=== PATIENT | male | born 1960 | race Caucasian/White ===

== ENCOUNTER 2020-08-08 12:37 | Emergency (ER) | payer MEDICARE, SELFPAY ==
[2020-08-08] VITALS (9 sets, daily range): BP systolic 106–173; BP diastolic 68–85; PULSE 57–78; RESP 12–18; TEMP 36.6; O2SAT 92–100
--- NOTE | ~2020-08-08 | XR_ITS ---
EXAMINATION: XR chest 2V DATE: 08/08/2020 13:10 INDICATION: Chest pain and chest pressure TECHNIQUE: PA and lateral views of the chest are obtained. COMPARISON: None available FINDINGS: There are patchy bilateral opacities, worst in the mid and lower lung zones. Cardiomegaly i s noted. There is no pleural effusion or pneumothorax. There are bridging osteophytes at multiple lev els in the spine, consistent with diffuse idiopathic skeletal hyperostosis (DISH). IMPRESSION: 1. Patchy bilateral opacities, consistent with atelectasis and/or pneumonia and/or pulmonary edema. Reviewed, dictated and finalized at location A. IMPRESSION: 1. Patchy bilateral opacities, consistent with atelectasis and/or pneumonia and /or pulmonary edema.
--- NOTE | 2020-08-08 12:49 | ECG_ITS ---
Measurements Intervals [place] Rate: 64 P: 57 MO: 177 QRS: 65 QRSD: 113 T: 30 QT: 405 QTc: 418 Interpretive Statements SINUS RHYTHM INCOMPLETE RIGHT BUNDLE BRANCH BLOCK BORDERLINE ST-T WAVE ABNORMALITY- ANTERIOR LEADS BASELINE ARTIFACT- I, II, III, AVR, AVF, V1, V3-V6 BORDERLINE ECG Electronically Signed On 08-08-2020 15:59:01 CDT by Howard Fulton D.O.
--- NOTE | 2020-08-08 12:54 | ED.CHESTPAIN ---
HPI - Chest Pain General Chief Complaint: Chest Pain Stated Complaint: chest tightness/arm shaking Time Seen by Provider: 08/08/20 12:46 Source: patient Mode of arrival: ambulatory Limitations: no limitations History of Present Illness HPI narrative: Patient is a 60 year old male who presents complaining of chest tightness and shortness of breath earlier today. He reports symptoms have resolved at this time. He reports pain in left side of chest. He reports pain is reproducable and increases with movement of left arm. He reports a history of interstitial lung disease. He reports appointment with pulmonology on 08/21/2020. He denies any shortness of breath or chest pain at this time. MD complaint: chest heaviness Related Data Home Medications Medication Instructions Recorded Confirmed albuterol sulfate INHALATION 08/08/20 08/08/20 levothyroxine [Euthyrox] 08/08/20 metformin mg 08/08/20 urea applic TOPICAL 08/08/20 Review of Systems Review of Systems: Narrative: CONSTITUTIONAL: Denies fever, chills, or sweats. EYES: Denies visual changes, redness, or discharge. ENT: Denies rhinorrhea, congestion, sore throat, or otalgia. CARDIOVASCULAR: Reports chest pain, denies palpitations, or edema. RESPIRATORY: Denies cough, reports intermittent dyspnea. GASTROINTESTINAL: Denies abdominal pain, nausea, vomiting, or diarrhea. GENITOURINARY: Denies dysuria or hematuria. SKIN: Denies rash or itching. MUSCULOSKELETAL: Denies back pain, joint pain, or myalgia. NEUROLOGIC: Denies headache, numbness, dizziness, or weakness. PSYCHIATRIC: Denies anxiety or depression. [facility] Past Medical History Medical History Depression Diabetes Elevated cholesterol Hypothyroidism Interstitial lung disease Surgical History Surgical History (Updated 08/08/20 @ 13:51 by RADHA Zavala) H/O hernia repair Family History Family History Other Heart disease Social History Social History (Updated 08/08/20 @ 13:52 by RADHA Zavala) Smoking status: Former smoker Tobacco type: cigarettes Alcohol intake: former Substance use: former Substance use type: crack/cocaine Last use: 1993 Exam Narrative: Exam Narrative: GENERAL: Well-appearing, well-nourished, and in no acute distress. HEAD: Normocephalic, atraumatic. EYES: EOMI. No redness or drainage. Conjunctiva are normal. ENT: Mucous membranes pink and moist. Nares clear. No rhinorrhea. Throat normal. Uvula midline. CHEST: No respiratory distress. Clear to auscultation. HEART: Regular rate and rhythm. No murmur appreciated. Normal peripheral pulses. GI: Soft, nontender without rebound, or guarding. No distention. Bowel sounds normal in all quadrants. MUSCULOSKELETAL: No bony tenderness. EXTREMITIES: Normal range of motion. No edema. SKIN: Warm, dry, no rash. NEURO: No focal deficits. Alert and oriented x3. Gait steady. PSYCH: Normal affect. No signs of depression or anxiety. Course Reevaluation(s) Reevaluation #1: Patient denies chest pain or shortness of breath at this time, he reports pain has been resolved since arrival. He reports feeling well. Patient given multiple resources and referrals. Patient to follow up with PCP as directed. Date: 08/08/20 Time: 17:01 Vital Signs Vital signs: Vital Signs Temperature 36.6 C 08/08/20 12:41 Pulse Rate 68 08/08/20 12:41 Respiratory Rate 18 08/08/20 12:41 Blood Pressure 173/85 H 08/08/20 12:41 Pulse Oximetry 96 08/08/20 12:41 Temperature 36.6 C 08/08/20 12:41 Pulse Rate 78 08/08/20 17:11 Respiratory Rate 16 08/08/20 17:11 Blood Pressure 118/75 08/08/20 17:11 Pulse Oximetry 100 08/08/20 17:11 Reviewed MDM - Chest Pain MDM Narrative Medical decision making narrative: Patient's labs were nonremarkable, Troponin is negatvie x 2. Patient requesting discharge at t
[2020-08-08 13:03] LABS: Basophils Absolute Auto 0.1 K/mm3 (0.0-0.1); Basophils Percent Auto 0.6 % (0.2-1.2); Eosinophils Absolute Auto 0.1 K/mm3 (0-0.3); Eosinophils Percent Auto 1.4 % (0-4.4); Hematocrit 46.7 % (42.0-52.0); Hemoglobin 15.9 g/dL (14.0-18.0); Immature Granulocyte Absolute 0.04 K/mm3 (0.00-0.031); Immature Granulocyte Percent A 0.4 % (0-0.5); Lymphocytes Percent Auto 20.9 % (18.3-44.2); Mean Corpuscular Hemoglobin 29.4 pg (26-34); Mean Corpuscular Volume 86.3 fl (80-100); Mean Platelet Volume 9.4 fl (7.4-10.4); Monocytes Absolute Auto 0.6 K/mm3 (0.1-0.6); Monocytes Percent Auto 6.9 % (2.6-8.5); Neutrophils Absolute Auto 6.3 K/mm3 (1.3-6.7); Neutrophils Percent Auto 69.8 % (45.5-73.1); Platelet Count Result 168 k/mm3 (150-375); Red Blood Count 5.41 M/mm3 (4.6-6.20); Red Cell Distribution Width 12.9 % (11.5-14.5); White Blood Count 9.1 K/mm3 (4.5-10.0)
[2020-08-08 13:14] LABS: Anion Gap 6 mmol/L (8-16); Blood Urea Nitrogen 15 mg/dL (9-20); Calcium 9.5 mg/dL (8.4-10.2); Carbon Dioxide 27 mmol/L (22-30); Chloride 105 mmol/L (98-107); Estimated CRCL calculation 88 ml/min; Estimated Glomerular Filt Rate > 60; Glucose 120 mg/dL (75-110); Potassium 4.3 mmol/L (3.4-5.0); Sodium 138 mmol/L (137-145)
[2020-08-08 13:15] LABS: INR 0.9
[2020-08-08 13:16] LABS: Partial Thromboplastin Time 29.4 SECONDS (22.3-36.8)
[2020-08-08 13:25] LABS: Troponin I < 0.012 ng/mL (0.000-0.034)
[2020-08-08 16:14] LABS: Troponin I < 0.012 ng/mL (0.000-0.034)
== END 2020-08-08 17:12 | disposition home or self-care (01) ==
PROVIDERS: Emergency Medicine; Emergency Provider Nurse Practitioner; PCP Family Medicine
DX: R07.89 Other chest pain (principal); F32.9 Major depressive disorder, single episode, unspecified; E11.9 Type 2 diabetes mellitus without complications; E78.5 Hyperlipidemia, unspecified; E03.9 Hypothyroidism, unspecified; Z79.84 Long term (current) use of oral hypoglycemic drugs
CPT/HCPCS: 36415; 71046; 80048; 84484; 85025; 85610; 85730; 93005; 99284

== ENCOUNTER 2021-12-22 17:40 | Inpatient (IN) | payer MEDICARE, SELFPAY ==
--- NOTE | ~2021-12-22 | XR_ITS ---
EXAMINATION: XR abdomen NG/feed tube insert DATE: 12/25/2021 03:05 INDICATION: Nasogastric tube placement. TECHNIQUE: An upright view of the abdomen was obtained. COMPARISON: Chest CT 12/22/2021 FINDINGS: The lower abdomen is excluded. There are dilated loops of small bowel. The nasogastric tube tip is in the stomach. IMPRESSION: 1. Nasogastric tube tip in the stomach. 2. Dilated small bowel, most likely adynamic ileus. Reviewed, dictated and finalized at location A.
--- NOTE | ~2021-12-22 | CT_ITS ---
EXAMINATION: CTA chest PE protocol DATE: 12/22/2021 23:06 INDICATION: Hypoxia. TECHNIQUE: Computed tomography angiography (CTA) of the chest was performed with 100 mL Omnipaque-350 intravenous contrast timed to evaluate the pulmonary arteries. Coronal maximum intensity projection 3D-reconstructions were created by the technologist. Automated exposure control and iterative reconst ruction technique were employed. The dose-length product was 520.47 mGy-cm. COMPARISON: Chest 2 views 08/08/2020 FINDINGS: There is mild emphysema. There is widespread septal thickening in the lungs with a peripher al predominance. There is mild bronchiectasis in the inferior lungs. There are multiple areas of marcellus pheral honeycombing. There are groundglass opacities in the left lower lobe and posterior aspect of l eft upper lobe. Calcified pulmonary nodules and calcified hilar lymph nodes are consistent with old g ranulomatous disease. No pleural effusion. The heart size is normal. No pericardial effusion. The keith tral pulmonary is enlarged, consistent with pulmonary arterial hypertension. There is contrast mixing artifact in the pulmonary arteries in right lung lower lobe due to the early phase of contrast opaci fication. There is no pulmonary embolus. Calcifications in the spleen are consistent with old granulo matous disease. There is mediastinal lymphadenopathy. For example, a right paratracheal node measures 2.4 x 2.1 cm. There are bridging endplate osteophytes at multiple levels in the spine, consistent wi th diffuse idiopathic skeletal hyperostosis (DISH). IMPRESSION: 1. No pulmonary embolus. 2. Diffuse lung disease, likely a combination of mild emphysema and severe chronic interstitial lung disease in a pattern of usual interstitial pneumonia (UIP). Groundglass opacities in left lung sugges t superimposed pulmonary edema or pneumonia. 3. Mediastinal lymphadenopathy, likely reactive. Reviewed, dictated and finalized at location A. IMPRESSION: 1. No pulmonary embolus. 2. 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 Groundglass opacities in left lung suggest superimposed pulmonary edema or p neumonia. 3. Mediastinal lymphadenopathy, likely reactive.
--- NOTE | ~2021-12-22 | XR_ITS ---
EXAMINATION: XR chest 1V portable DATE: 12/25/2021 04:26 INDICATION: Intubation. TECHNIQUE: A single frontal view of the chest was obtained. COMPARISON: Chest single view at 2:54 AM FINDINGS: The lung volumes are small. There are airspace and interstitial opacities throughout the ramsey ngs bilaterally. No pleural effusion or pneumothorax. The heart size is normal. The endotracheal tube tip is 14 mm above the renetta. The nasogastric tube tip is beyond the inferior margin of the radiogr aph, but at least to the stomach. IMPRESSION: 1. Diffuse lung disease with worsening at left lung base, consistent with chronic interstitial lung d isease with superimposed pulmonary edema versus pneumonia. Reviewed, dictated and finalized at location A. IMPRESSION: 1. Diffuse lung disease with worsening at left lung base, consistent with chron ic interstitial lung disease with superimposed pulmonary edema versus pneumonia .
--- NOTE | ~2021-12-22 | XR_ITS ---
EXAMINATION: XR chest ET placement DATE: 12/25/2021 03:04 INDICATION: Endotracheal tube repositioning. TECHNIQUE: A single frontal view of the chest was obtained. COMPARISON: Chest single view 2:50 AM FINDINGS: The lung volumes are small. There are airspace and interstitial opacities throughout the ramsey ngs bilaterally. No pleural effusion or pneumothorax. The heart size is normal. The endotracheal tube tip is 2.6 cm above the renetta. The nasogastric tube tip is in the stomach. A curvilinear density ov erlies left lateral chest wall. IMPRESSION: 1. Stable diffuse lung disease, consistent with chronic interstitial lung disease with superimposed p ulmonary edema versus pneumonia. Reviewed, dictated and finalized at location A. IMPRESSION: 1. Stable diffuse lung disease, consistent with chronic interstitial lung disea se with superimposed pulmonary edema versus pneumonia.
--- NOTE | ~2021-12-22 | XR_ITS ---
EXAMINATION: XR chest 1V portable Exam Date/Time: 12/24/2021 22:48 CDT HISTORY: increased need for o2 Comparison: 12/24/2021 at 9:15 AM. RESULT: Lines, tubes, and devices: None. Lungs and pleura: Increasing bibasilar subsegmental opacities and left lung groundglass opacities, o verlying otherwise stable diffuse coarse interstitial and airspace opacities. Bilateral angle bluntin g. Cardiomediastinal silhouette: Stable. Other: No acute osseous or upper abdominal finding. IMPRESSION: Pulmonary opacities likely represent increasing pulmonary edema, increasing bibasilar atelectasis/con solidation, and new small bilateral effusions, overlying chronic interstitial change. Reviewed, dictated and finalized at location K. IMPRESSION: Pulmonary opacities likely represent increasing pulmonary edema, increasing bib asilar atelectasis/consolidation, and new small bilateral effusions, overlying chronic interstitial change.
--- NOTE | ~2021-12-22 | XR_ITS ---
EXAMINATION: XR chest ET placement DATE: 12/25/2021 03:04 INDICATION: Intubation. TECHNIQUE: A single frontal view of the chest was obtained. COMPARISON: Chest single view 12/24/2021 FINDINGS: The lung volumes are small. There are airspace and interstitial opacities throughout the ramsey ngs bilaterally. No pleural effusion or pneumothorax. The heart size is normal. The endotracheal tube tip is 2.3 cm above the renetta. The nasogastric tube tip is beyond the inferior margin of the radiog raph, but at least to the stomach. A curvilinear density overlies the left lateral chest wall soft ti ssues. IMPRESSION: 1. Stable diffuse lung disease, consistent with chronic interstitial lung disease with superimposed p ulmonary edema versus pneumonia. Reviewed, dictated and finalized at location A. IMPRESSION: 1. Stable diffuse lung disease, consistent with chronic interstitial lung disea se with superimposed pulmonary edema versus pneumonia.
--- NOTE | ~2021-12-22 | XR_ITS ---
XR chest 1V portable 12/24/2021 09:23 Indication: Interstitial lung disease. Shortness of breath and cough. Procedure: AP portable chest Comparison: 08/08/2020 Findings: There is diffuse bilateral airspace disease which may represent edema or pneumonia. No sign ificant effusion. No pneumothorax. Enlarged cardiomediastinal silhouette. No acute osseous abnormalit y. Impression: 1: Diffuse bilateral airspace disease may represent edema or pneumonia. Reviewed, dictated and finalized at location A. Impression: 1: Diffuse bilateral airspace disease may represent edema or pneumonia.
--- NOTE | 2021-12-22 17:57 | ADMGEN ---
This patient, Dean Duffy, was admitted to IMU Room 210-01 at 1750. Patient/family oriented to hospital policies and general routines including ID bracelet, bed and alarms, visiting hours, pain management, procedures, bathroom and other care routines, personal items, smoking policy, room service/diet, and visiting hours. Information on how to activate the Rapid Response Team has been discussed. Patient/Family are encouraged to report perceived risks to care and to ask questions if they do not understand what they are told or what they should do.
[2021-12-22 18:00] VITALS: PULSE 68
[2021-12-22 18:02] LABS: Glucose Point of Care 128 mg/dl (65-105)
[2021-12-22 18:09] VITALS: BP 130/72; PULSE 69; RESP 22; TEMP 36.6; O2SAT 74; BMI 31.2
--- NOTE | 2021-12-22 18:29 | ECG_ITS ---
Measurements Intervals [place] Rate: 65 P: 131 UT: 178 QRS: 121 QRSD: 117 T: 235 QT: 449 QTc: 468 Interpretive Statements SINUS RHYTHM ARM LEADS REVERSED ST-T WAVE ABNORMALITY IN ANTEROLAT/INF LEADS- CONSIDER ISCHEMIA ABNORMAL ECG COMPARED TO ECG 08/08/2020 12:47:03 ST-T WAVE ABNORMALITY IN ANTEROLAT/INF LEADS- CONSIDER ISCHEMIA NOW PRESENT Electronically Signed On 12-23-2021 7:56:15 CDT by Howard Fulton D.O.
[2021-12-22 19:01] LABS: Basophils Percent Auto 0.1 % (0.2-1.2); Eosinophils Percent Auto 0.1 % (0-4.4); Hematocrit 43.7 % (42.0-52.0); Hemoglobin 14.4 g/dL (14.0-18.0); Immature Granulocyte Absolute 0.09 K/mm3 (0.00-0.031); Immature Granulocyte Percent A 0.7 % (0-0.5); Lymphocytes Absolute Auto 1.77 K/mm3 (0.9-3.2); Lymphocytes Percent Auto 13.2 % (18.3-44.2); Mean Corpuscular Hemoglobin 29.9 pg (26-34); Mean Corpuscular Volume 90.9 fl (80-100); Mean Platelet Volume 9.7 fl (7.4-10.4); Monocytes Absolute Auto 1.2 K/mm3 (0.1-0.6); Monocytes Percent Auto 9.2 % (2.6-8.5); Neutrophils Absolute Auto 10.3 K/mm3 (1.3-6.7); Neutrophils Percent Auto 76.7 % (45.5-73.1); Platelet Count Result 206 k/mm3 (150-375); Red Blood Count 4.81 M/mm3 (4.6-6.20); Red Cell Distribution Width 13.8 % (11.5-14.5); White Blood Count 13.4 K/mm3 (4.5-10.0)
[2021-12-22 19:09] LABS: Hemoglobin A1C 6.2 % (<5.7)
[2021-12-22 19:11] LABS: INR 1.1; Partial Thromboplastin Time 42.4 SECONDS (22.3-36.8); Prothrombin Time 14.2 Seconds (11.1-14.7)
[2021-12-22 19:13] LABS: Alanine Aminotransferase 40 U/L (6-50); Alkaline Phosphatase 60 U/L (38-126); Anion Gap 11 mmol/L (8-16); Aspartate Amino Transferase 29 U/L (17-59); Bilirubin,Total 0.4 mg/dL (0.2-1.3); Blood Urea Nitrogen 26 mg/dL (9-20); Calcium 9.3 mg/dL (8.4-10.2); Carbon Dioxide 24 mmol/L (22-30); Chloride 105 mmol/L (98-107); Estimated CRCL calculation 83 ml/min; Estimated Glomerular Filt Rate > 60; Glucose 134 mg/dL (65-110); Magnesium 2.1 mg/dL (1.6-2.3); Sodium 140 mmol/L (137-145)
[2021-12-22 19:25] LABS: Troponin I 0.114 ng/mL (0.000-0.034)
--- NOTE | 2021-12-22 19:30 | PM.IMHP ---
H&P: HPI History of Present Illness Date/Time: 12/22/21 19:30 Chief Complaint: NSTEMI. Narrative: This is a very pleasant 61-year-old male with chronic respiratory failure on oxygen, chronic interstitial lung disease, hypertension, hyperlipidemia, diabetes, and GERD who is being directly admitted to the IMU from the emergency department at [facility] in [place] for further evaluation and Cardiology consultation after he was found to have evidence suggestive of a non ST elevation myocardial infarction. He is on 3 liters nasal cannula at rest and 4 liters with exertion and his SpO2 is usually around 90%. Over the last week or so he has been feeling increasingly short of breath and he has been wearing 4 to 5 liters in order to maintain his SpO2 above 88%. He has had a cough as well though goes on to say that it has been pretty chronic since he had COVID in September 2021. It has not necessarily been any more productive than usual however the cough has been harsh and he has had frequent coughing jags to the point where he has had near syncopal episodes. With further questioning he also admits that he feels as though his cough is worse when eating and drinking which he initially thought was perhaps due to indigestion and he has been taking Tums. He has not however had any symptoms to suggest GERD or indigestion and he also denies chest discomfort, pleuritic pain, and palpitations. Last evening he presented to the emergency department at [facility] and at that time his labs were pretty much unremarkable aside from elevated high sensitivity troponin and BNP which were 1.93 and 4664 respectively. He was started on a heparin drip and transfer was initiated to [place]. At the time my evaluation he is resting comfortably and his main complaint is that of ongoing cough which seems to be worse with deep inspiration. He is not having any chest pain to speak of. He has no known history of coronary artery disease. Stress test done about 7 years ago was unremarkable. He has no personal or family history of venous thromboembolism he has not noticed any lower extremity edema or calf pain. He cannot recall a time where he may have accidentally aspirated into his airway. He has not had any loss of consciousness. No sinus congestion or sore throat. He denies sick contacts. Appetite has been fine. No nausea, vomiting, or diarrhea. Review of Systems Review of Systems: Twelve systems were reviewed. Glucose usually runs right about 100. His glucose this morning was brought 130 but he did receive a dose of Decadron last evening. He has never been officially diagnosed with emphysema or COPD to his knowledge. He is followed by a insulation sprayer at [facility] and he is supposed to have an upcoming CT of the chest to reassess his interstitial lung disease. Except as documented, all other systems were reviewed and are negative. ON LICENSE OF [facility] Past Medical History Medical History (Updated 12/22/21 @ 23:53 by Helga Berry PA-C) Basal cell carcinoma of face Chronic respiratory failure with hypoxia, on home oxygen therapy Depression Dyslipidemia Hypothyroidism Interstitial lung disease Obstructive sleep apnea Type 2 diabetes mellitus Surgical History Surgical History (Updated 12/22/21 @ 20:01 by Helga Berry PA-C) History of basal cell carcinoma excision History of hernia repair Family History Family History Father Hx of CABG Heart disease Mother Ovarian cancer Sibling CAD (coronary artery disease) Breast cancer Social History Social History (Updated 12/22/21 @ 20:03 by Helga Berry PA-C) Social History: Surrogate medical decision maker: Roxanne Duffy, spouse Code status: full code. Smoking packs per day: 2 Smoking cigarettes per day: 40.0 Years smoked: 8 Smoking pack-years: 16.00 Smoking status: Former smoker Tobacco type: cigarettes Alcohol in
--- NOTE | 2021-12-22 19:53 | ECG_ITS ---
Measurements Intervals [place] Rate: 59 P: 40 MT: 172 QRS: 59 QRSD: 114 T: -68 QT: 456 QTc: 455 Interpretive Statements SINUS BRADYCARDIA INTRAVENTRICULAR CONDUCTION DELAY ST-T WAVE ABNORMALITY IN ANT/INF LEADS- CONSIDER ISCHEMIA ABNORMAL ECG COMPARED TO ECG 12/22/2021 18:46:20 HR HAS DECREASED Electronically Signed On 12-23-2021 7:57:01 CDT by Howard Fulton D.O.
[2021-12-22 19:59] LABS: Glucose Point of Care 133 mg/dl (65-105)
[2021-12-22 20:00] VITALS: BP 114/63; PULSE 67; PULSE 70; RESP 20; TEMP 36.4; O2SAT 95
[2021-12-22 21:57] LABS: Basophils Percent Auto 0.2 % (0.2-1.2); Eosinophils Percent Auto 0.1 % (0-4.4); Hematocrit 43.2 % (42.0-52.0); Hemoglobin 14.2 g/dL (14.0-18.0); Immature Granulocyte Absolute 0.06 K/mm3 (0.00-0.031); Immature Granulocyte Percent A 0.4 % (0-0.5); Mean Corpuscular HGB Conc 32.9 g/dl (32-36); Mean Corpuscular Hemoglobin 29.6 pg (26-34); Mean Corpuscular Volume 90.2 fl (80-100); Mean Platelet Volume 9.8 fl (7.4-10.4); Monocytes Absolute Auto 1.3 K/mm3 (0.1-0.6); Monocytes Percent Auto 8.3 % (2.6-8.5); Neutrophils Absolute Auto 11.6 K/mm3 (1.3-6.7); Platelet Count Result 197 k/mm3 (150-375); Red Blood Count 4.79 M/mm3 (4.6-6.20); Red Cell Distribution Width 13.6 % (11.5-14.5); White Blood Count 15.1 K/mm3 (4.5-10.0)
[2021-12-22 22:00] VITALS: PULSE 61; PULSE 63; RESP 25; O2SAT 95
[2021-12-22 22:08] LABS: INR 1.2; Prothrombin Time 14.5 Seconds (11.1-14.7)
[2021-12-22 22:09] LABS: Partial Thromboplastin Time 48.1 SECONDS (22.3-36.8)
[2021-12-22 22:23] LABS: Troponin I 0.124 ng/mL (0.000-0.034)
[2021-12-22] MEDS: ARIPiprazole 10 MG TABLET 30 MG PO (23:10)
[2021-12-22] MEDS: PANTOPRAZOLE 40 MG TABLET PO (23:13)
[2021-12-22] MEDS: ESCITALOPRAM OXALATE 10 MG TABLET PO (23:13)
[2021-12-22] MEDS: ATORVASTATIN 20 MG TABLET PO (23:13)
[2021-12-22] MEDS: buPROPion HCL SR (12HR) 100 MG TABCR 200 MG PO (23:13)
[2021-12-22] MEDS: HEPARIN SOD/D5W 100 UNITS/ML 25,000 UNITS/250 ML BAG 13 UNITS IV CONT (23:14)
[2021-12-22] MEDS: HEPARIN SODIUM 5,000 UNITS/ML VIAL 4000 UNITS IV PUSH (23:22)
[2021-12-22 23:36] VITALS: BP 122/62; PULSE 67; RESP 22; TEMP 36.6; O2SAT 92
[2021-12-22 23:48] VITALS: PULSE 67; RESP 22; O2SAT 92
[2021-12-23] VITALS (21 sets, daily range): BP systolic 100–121; BP diastolic 57–75; PULSE 54–80; RESP 16–24; TEMP 36.2–36.7; O2SAT 93–97
[2021-12-23 01:07] LABS: Troponin I 0.128 ng/mL (0.000-0.034)
[2021-12-23] MEDS: LEVOTHYROXINE SODIUM 50 MCG TABLET BY MOUTH (06:16)
[2021-12-23 06:37] LABS: Basophils Percent Auto 0.3 % (0.2-1.2); Eosinophils Absolute Auto 0.1 K/mm3 (0-0.3); Eosinophils Percent Auto 0.4 % (0-4.4); Hematocrit 43.6 % (42.0-52.0); Hemoglobin 14.1 g/dL (14.0-18.0); Immature Granulocyte Absolute 0.08 K/mm3 (0.00-0.031); Immature Granulocyte Percent A 0.6 % (0-0.5); Lymphocytes Absolute Auto 2.79 K/mm3 (0.9-3.2); Mean Corpuscular HGB Conc 32.3 g/dl (32-36); Mean Corpuscular Hemoglobin 29.4 pg (26-34); Mean Corpuscular Volume 90.8 fl (80-100); Mean Platelet Volume 10.2 fl (7.4-10.4); Monocytes Absolute Auto 1.1 K/mm3 (0.1-0.6); Monocytes Percent Auto 7.6 % (2.6-8.5); Neutrophils Absolute Auto 9.9 K/mm3 (1.3-6.7); Neutrophils Percent Auto 71.1 % (45.5-73.1); Platelet Count Result 204 k/mm3 (150-375); Red Cell Distribution Width 13.7 % (11.5-14.5); White Blood Count 13.9 K/mm3 (4.5-10.0)
[2021-12-23 06:44] LABS: Anion Gap 10 mmol/L (8-16); Blood Urea Nitrogen 24 mg/dL (9-20); Calcium 8.7 mg/dL (8.4-10.2); Carbon Dioxide 26 mmol/L (22-30); Chloride 103 mmol/L (98-107); Estimated CRCL calculation 83 ml/min; Estimated Glomerular Filt Rate > 60; Glucose 131 mg/dL (65-110); Potassium 3.7 mmol/L (3.4-5.0); Sodium 139 mmol/L (137-145)
[2021-12-23 06:47] LABS: Partial Thromboplastin Time 118.5 SECONDS (22.3-36.8)
--- NOTE | 2021-12-23 07:08 | PM.CNCAR ---
Assessment and Plan Assessment and plan (1) Interstitial lung disease: Code(s): J84.9 - Interstitial pulmonary disease, unspecified Status: Acute (2) Chronic respiratory failure with hypoxia, on home oxygen therapy: Code(s): J96.11 - Chronic respiratory failure with hypoxia; Z99.81 - Dependence on supplemental oxygen Status: Acute Plan This is a 61-year-old man with chronic lung disease who has been coughing a lot more than usual for about 3 months since he had coronavirus in September. I do not get any history from him that would make me suspicious or concerned about an acute coronary syndrome. His electrocardiogram shows a very mild nonspecific T-wave abnormality but nothing of great. Particular concern regarding acute coronary syndrome. His troponin levels are out of normal range but flat and not in a pattern that is suggestive of ACS. I am going to recommend stopping his heparin and I will arrange for a Lexiscan nuclear stress test to be done tomorrow. Tayo Starr MD [facility] History of Present Illness History of Present Illness Consult date/time: 12/23/21 07:08 Reason For Visit: Elevated Troponins/SOB/NSTEMI Narrative: This is a 61-year-old man who I am seeing at the request of the hospitalist. He was transferred here yesterday from the emergency room and [place] for cardiac evaluation because of concern regarding acute coronary syndrome. He is not known to have heart disease of any kind and he is not reporting any sort of chest pain. The patient has been complaining of worsening of a chronic cough for the last 3 months. He states that he has chronic interstitial lung disease and sees a intermodal truck driver at [facility] for management of his lung disease. States this diagnosis goes back to about 2017 and he is on home oxygen. In September of this year he developed coronavirus and following that illness he noticed that his coughing clearly worsened over the course of the summer he has been having significant coughing spells sometimes nonproductive and sometimes productive of some thick sputum. He is not really reporting any fevers or chills. He is not having any chest pain. Because of this worsening coughing he went to the emergency room and [place] and his evaluation included electrocardiograms and troponin levels. Because of his findings he was felt to be having an acute coronary syndrome he was placed on a heparin infusion and transferred over here. His 12 lead ECG in my opinion demonstrates sinus rhythm with some nonspecific T-wave abnormalities. There are no acute ischemic changes. His troponin levels are out of normal range but are of low level elevation that are flat at 0.1. Upon entering the room to see him this morning he is lying flat in bed with his oxygen in place and appears to be otherwise essentially comfortable. Review of Systems Constitutional: Constitutional: Reports no additional constitutional complaints Eyes: Eyes: Reports no additional eye complaints ENT: Reports system reviewed and no additional complaints, except as documented Cardiovascular: Cardiovascular: Reports no additional cardiovascular complaints Respiratory: Respiratory: Reports cough and Reports dyspnea on exertion Gastrointestinal: Gastrointestinal: Reports no additional gastrointestinal complaints Musculoskeletal: Musculoskeletal: Reports no additional musculoskeletal complaints Integumentary/Breasts: Skin/Breast: Reports system reviewed and no additional complaints, except as docu Neurologic: Reports system reviewed and no additional complaints, except as documented Endocrine: Endocrine: Reports no additional endocrine complaints Hematologic/Lymphatic: Hematologic/Lymphatic: Reports no additional hematologic/lymphatic complaints Allergic/Immunologic: Allergic/Immunologic: Reports no additional allergic/immunologic complaints [facility] Past Medical History Medical History (Updated 12/22/21 @ 23:53
[2021-12-23 07:59] LABS: Glucose Point of Care 126 mg/dl (65-105)
[2021-12-23] MEDS: BENZONATATE 100 MG CAPSULE 200 MG PO (09:09)
[2021-12-23] MEDS: ARIPiprazole 10 MG TABLET 30 MG PO (09:09)
[2021-12-23] MEDS: ASPIRIN 81 MG ENTERIC TABLET PO (09:10)
[2021-12-23] MEDS: METOPROLOL TARTRATE 12.5 MG TABLET PO ×2 (09:10→21:24)
[2021-12-23] MEDS: ATORVASTATIN 20 MG TABLET PO (09:10)
[2021-12-23] MEDS: buPROPion HCL SR (12HR) 100 MG TABCR 200 MG PO ×2 (09:11→18:11)
[2021-12-23] MEDS: ESCITALOPRAM OXALATE 10 MG TABLET PO (09:11)
[2021-12-23] MEDS: PANTOPRAZOLE 40 MG TABLET PO (09:11)
--- NOTE | 2021-12-23 09:11 | PM.IMPN ---
Progress Note: A&P Assessment and Plan (1) Non-ST elevation myocardial infarction (NSTEMI): Code(s): I21.4 - Non-ST elevation (NSTEMI) myocardial infarction Status: Acute Assessment and Plan: Patient denies chest pain. His symptoms mostly consist of respiratory concerns. Troponins are elevated but flat. EKG does show diffuse T-wave inversion concerning for ischemia. He was on a heparin drip but this has now been stopped. He remains on aspirin, Lipitor and metoprolol. Echo pending. Cardiology has been consulted with plans for Lexiscan stress test in the morning. Appreciate their input. (2) Chronic respiratory failure with hypoxia, on home oxygen therapy: Code(s): J96.11 - Chronic respiratory failure with hypoxia; Z99.81 - Dependence on supplemental oxygen Status: Acute Assessment and Plan: CTA of the chest shows diffuse lung disease likely a combination of emphysema, severe I LD (UIP) and ground-glass opacities in left lung suggestive edema or pneumonia. He also has reactive mediastinal adenopathy. Patient has had a chronic cough is worse since September. 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 His symptoms have worsened over the past 3-4 days to suggest change in his clinical condition possibly from pneumonia. There was a question of possible pulmonary edema. Has split S2 (gallop?) and elevated BNP but no pedal edema. Will check BCx and sputum Cx. Consider Lasix. Start levaquin. Add nebs and mucinex. Pulmonary consult. (3) Type 2 diabetes mellitus: Code(s): E11.9 - Type 2 diabetes mellitus without complications Status: Acute Assessment and Plan: A1c 6.2. The patient's blood glucose was reviewed on 12/23 Glucose remains well controlled. Continue AccuCheks covering with sliding scale. Hypoglycemia protocol available as needed. Continue to monitor (4) Obstructive sleep apnea: Code(s): G47.33 - Obstructive sleep apnea (adult) (pediatric) Status: Acute Assessment and Plan: Patient is compliant with CPAP at home. Continue CPAP here while hospitalized. (5) Hypothyroidism: Code(s): E03.9 - Hypothyroidism, unspecified Status: Acute Assessment and Plan: TSH is normal. Continue levothyroxine. (6) Interstitial lung disease: Code(s): J84.9 - Interstitial pulmonary disease, unspecified Status: Acute Assessment and Plan: As above. Plan DVT prophylaxis: Heparin drip stopped. Change to Lovenox prophylactic dose Code status: Full Subjective Date/time seen: 12/23/21 09:11 Interval history: 61yo male with chronic respiratory failure, ILD, DM and LAKSHMI transferred from outside hospital for possible NSTEMI. Patient has interstitial lung disease since 2017 and is on chronic oxygen 3 L at rest and 4 L with activity. His hypoxia worsened after he developed COVID in September of this year. He is now wearing 4-5 L mostly. He has also had a chronic cough and developed shortness of breath that is mostly associated with the cough. Cough has been worse over the past 3-4 days. The cough is occasionally productive of clear sputum. He denies any chest discomfort, arm pain, jaw pain or back pain. He denies any pedal edema or calf pain. No pleuritic chest pain. Exam Narrative: AF 97.8 110/67 60 24 96% 5L Gen - NARD sitting up in bed Chest -dry inspiratory crackles mid lower lung pierre bilaterally. Mildly tachypneic with conversation. CV - RRR S1/S2. Split S2 left sternal boarder. Telemetry showing no significant dysrhythmias Abd - Soft, NT/ND, Positive BS Ext - No pedal edema. Negative Homans. 2+ DP pulses bilaterally Psych - Nml mood and affect Skin - Warm and dry Objective Data Vital Signs Vital Signs: Vital Signs - 24 hr 12/22/21 18:09 12/22/21 18:00 12/22/21 20:00 Temperature 97.9 F 97.5 F L Pulse Rate 69 68 67 Respiratory Rate 22 H 20 Blood Pressure 130/72 114/63 Pulse Oximetry 74 L 95 Oxygen
[2021-12-23 11:18] LABS: Partial Thromboplastin Time 29.2 SECONDS (22.3-36.8)
[2021-12-23] MEDS: ENOXAPARIN 40 MG/0.4 ML SYRINGE SUB-Q (11:44)
[2021-12-23] MEDS: guaiFENesin 12 HR 600 MG TABCR PO ×2 (11:44→21:25)
[2021-12-23 12:06] LABS: Glucose Point of Care 199 mg/dl (65-105)
[2021-12-23] MEDS: ALBUTEROL SULFATE NEB 2.5 MG/3 ML INH INHALATION ×2 (13:54→20:07)
[2021-12-23] MEDS: IPRATROPIUM BR 0.02% INH SOLN 0.5 MG/2.5 ML VIAL INHALATION ×2 (13:54→20:07)
[2021-12-23] MEDS: polyethylene glycoL 3350 17 GM POWD.PACK PO (18:11)
[2021-12-23 18:12] LABS: Glucose Point of Care 153 mg/dl (65-105)
--- NOTE | 2021-12-23 19:01 | PM.CNPUL ---
Assessment and Plan Assessment and plan (1) Interstitial lung disease: Code(s): J84.9 - Interstitial pulmonary disease, unspecified Status: Acute Assessment and Plan: See above discussion. He has had this diagnosis since [id number], has not been on anti-fibrotic medications, He took steroids twice over the few weeks before this admission. He is followed by Dr Burkett in [facility]; will obtain records. He does not have an associated collagen vascular disease; he has worsened since COVID in September 2021. COVID can be associated with UIP type fibrosis. he has a combination of processes going on at this time; underlying ILD for the last 6 years, subacute COVID in September 2021, possible active infection with ground glass opacities in the left base. He is on Levaquin for coverage of normal community acquired pathogens, may require additional treatment. He may need IV steroids, however with active infection, I wanted to delay this if possible. He is on PPI for management of GERD which is frequent in patients with ILD. He may benefit from vibratory valve to help expectorate secretions. I ordered an SEBASTIÁN panel to screen for collagen vascular diseases; he has regular arthritis, no evidence of RA and no history of auto-immune illness. There is no family history of autoimmune illness. A paternal uncle had a lung related when he was close to 60, not sure if this could represent a family hx of ILD. (2) Obstructive sleep apnea: Code(s): G47.33 - Obstructive sleep apnea (adult) (pediatric) Status: Acute Assessment and Plan: Uses APAP at home with O2; sometimes he wakes with the mask on the floor; will offer APAP while he is here. He has not had a sleep study in years. He feels better using PAP compared to nightst hat he does not use it. (3) Chronic respiratory failure with hypoxia, on home oxygen therapy: Code(s): J96.11 - Chronic respiratory failure with hypoxia; Z99.81 - Dependence on supplemental oxygen Status: Acute Assessment and Plan: Adjust O2 to maintain O2 saturation 90% +; He will use APAP and O2 with sleep. IF he desaturates, he would benefit from AirVo instead of BiPAP. He does not have CO2 retention. He is getting bronchodilators; may help some, however he smoked 10 years at most 2 ppd, does not have a diagnosis of COPD. Plan Complicated situation. ILD plus COVID in September 2021 without full recovery. Old records. O2, sputum studies, out patient initiation of anti-fibrotic medications. He has not had any treatment for his ILD. His pattern on CT looks like UIP. He is on treatment for GERD with PPI once a day. History of Present Illness History of Present Illness Consult date: 12/23/21 Requesting physician: Bj Jones MD Chief complaint: ILD, post COVID Narrative: NEW: Dean Duffy is a 61 year old man admitted with increased shortness of breath and incessant coughing to the point of almost passing out. During the 3 weeks prior to this admission, he had increased symptoms, and was prescribed 2 rounds of short course steroids which sounded like a medrol dose pack and once he had azithromycin. He was initially treated at [facility] in [place], had low level troponins, no other evidence of an CO. Dr Starr saw him in consultation, did not think he had an CO or other significant cardiac disease. He was diagnosed with ILD in [id number] along with DM II and LAKSHMI. 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 . Otherwise, he does not hav
[2021-12-23 20:04] LABS: Glucose Point of Care 170 mg/dl (65-105)
[2021-12-24] VITALS (31 sets, daily range): BP systolic 106–140; BP diastolic 67–78; PULSE 59–96; RESP 16–35; TEMP 36.1–37.4; O2SAT 89–98
--- NOTE | 2021-12-24 | ECHO_ITS ---
Patient Info Name: Dean Duffy Age: 61 years : 1960 Gender: Male Ht: 68 in Wt: 205 lbs BSA: 2.14 m2 HR: 66 bpm BP: 106 / 78 mmHg Heart Rhythm: Sinus Rhythm Technical Quality: Fair Exam Date: 12/24/2021 8:53 AM Exam Location: [facility] Card Pulmonary Patient Status: Inpatient Admit Date: 12/23/2021 Staff Ordering Physician: Helga Berry PA-C Software Team Leader: Joycelyn Guerra RDCS Attending Provider: Alyce Rizo DO Referring Physician: Jamal AU; Exam Type: CA echo doppler color flow Study Info Indications - elevated troponin, htn, hld, dm Complete two-dimensional, color flow and Doppler transthoracic echocardiogram is performed. Summary 1. Complete two-dimensional, color flow and Doppler transthoracic echocardiogram is performed. 2. Left ventricular chamber dimension is normal. 3. Left ventricular systolic function is mildly reduced, estimated at 50-55%. 4. Right ventricular chamber dimension is moderately enlarged. 5. Right ventricular systolic function is reduced. 6. Moderate pulmonary hypertension, estimated pulmonary arterial systolic pressure is 62 mmHg. 7. The posterior LV segment appears to be hypodynamic. Left Ventricle Left ventricular chamber dimension is normal. Left ventricular systolic function is mildly reduced, estimated at 50-55%. The left ventricular diastolic function is grade I diastolic dysfunction. Right Ventricle Right ventricular chamber dimension is moderately enlarged. Right ventricular systolic function is reduced. Left Atria Left atrial chamber dimension is mildly enlarged. Right Atria Right atrial chamber dimension is normal. Aortic Valve The aortic valve is normal. Pulmonic Valve The pulmonic valve is normal. Mitral Valve The mitral valve has normal leaflets. Tricuspid Valve The tricuspid valve leaflets are normal. There is mild tricuspid valve regurgitation. Moderate pulmonary hypertension, estimated pulmonary arterial systolic pressure is 62 mmHg. Pericardium/Pleural The pericardium appears normal. Aorta The aortic root size at the sinus of Valsalva is normal. Left Ventricular Outflow Tract Name Value Normal LVOT 2D LVOT Diameter 2.2 cm LVOT Doppler LVOT Peak Gradient 1 mmHg LVOT Mean Gradient 0 mmHg LVOT VTI 6 cm LVOT VTI/AV VTI Ratio 0.4 LVOT Stroke Volume 25 ml LVOT CO 1.7 l/min LVOT CI 0.8 l/min/m2 Pulmonic Valve Name Value Normal RVOT Doppler RVOT Peak Gradient 1 mmHg PV Doppler PV Peak Gradient 6 mmHg Mitral Va
[2021-12-24] MEDS: IPRATROPIUM BR 0.02% INH SOLN 0.5 MG/2.5 ML VIAL INHALATION ×4 (02:17→20:35)
[2021-12-24] MEDS: ALBUTEROL SULFATE NEB 2.5 MG/3 ML INH INHALATION ×4 (02:17→20:35)
[2021-12-24 05:33] LABS: Basophils Percent Auto 0.4 % (0.2-1.2); Eosinophils Absolute Auto 0.1 K/mm3 (0-0.3); Eosinophils Percent Auto 0.5 % (0-4.4); Hematocrit 43.6 % (42.0-52.0); Hemoglobin 13.8 g/dL (14.0-18.0); Immature Granulocyte Absolute 0.08 K/mm3 (0.00-0.031); Immature Granulocyte Percent A 0.7 % (0-0.5); Lymphocytes Absolute Auto 1.76 K/mm3 (0.9-3.2); Mean Corpuscular HGB Conc 31.7 g/dl (32-36); Mean Corpuscular Hemoglobin 29.4 pg (26-34); Mean Platelet Volume 9.5 fl (7.4-10.4); Monocytes Absolute Auto 1.2 K/mm3 (0.1-0.6); Monocytes Percent Auto 10.9 % (2.6-8.5); Neutrophils Absolute Auto 7.9 K/mm3 (1.3-6.7); Neutrophils Percent Auto 71.5 % (45.5-73.1); Platelet Count Result 188 k/mm3 (150-375); Red Blood Count 4.69 M/mm3 (4.6-6.20); Red Cell Distribution Width 14.2 % (11.5-14.5)
[2021-12-24 06:01] LABS: Anion Gap 10 mmol/L (8-16); Blood Urea Nitrogen 21 mg/dL (9-20); Calcium 8.6 mg/dL (8.4-10.2); Carbon Dioxide 28 mmol/L (22-30); Chloride 101 mmol/L (98-107); Estimated CRCL calculation 75 ml/min; Estimated Glomerular Filt Rate > 60; Glucose 125 mg/dL (65-110); Sodium 139 mmol/L (137-145)
[2021-12-24] MEDS: LEVOTHYROXINE SODIUM 50 MCG TABLET BY MOUTH (06:23)
--- NOTE | 2021-12-24 08:00 | ECG_ITS ---
Measurements Intervals [place] Rate: 61 P: 61 IL: 168 QRS: 77 QRSD: 119 T: -14 QT: 428 QTc: 433 Interpretive Statements SINUS RHYTHM POSSIBLE LEFT ATRIAL ENLARGEMENT INCOMPLETE RIGHT BUNDLE BRANCH BLOCK ST-T WAVE ABNORMALITY IN ANT/INF LEADS- CONSIDER ISCHEMIA BASELINE WANDER- AVR, AVL, AVF ABNORMAL ECG COMPARED TO ECG 12/22/2021 20:17:58 NO SIGNIFICANT CHANGES Electronically Signed On 12-24-2021 10:00:24 CDT by Howard Fulton D.O.
[2021-12-24 08:20] LABS: Glucose Point of Care 129 mg/dl (65-105)
--- NOTE | 2021-12-24 08:58 | PM.PNCARD ---
Progress Note: A&P Assessment and Plan (1) Interstitial lung disease: Code(s): J84.9 - Interstitial pulmonary disease, unspecified Status: Acute (2) Chronic respiratory failure with hypoxia, on home oxygen therapy: Code(s): J96.11 - Chronic respiratory failure with hypoxia; Z99.81 - Dependence on supplemental oxygen Status: Acute (3) Elevated troponin: Code(s): R77.8 - Other specified abnormalities of plasma proteins Status: Acute Assessment and Plan: Troponin levels sampled on admission, mildly elevated and flat. Not consistent with ACS. Denies any chest pain. Plan for lexiscan this morning but this was cancelled because of worsening respiratory status. Since he continues to be free of chest pain will plan for outpatient stress testing in our office. Subjective Date/time seen: 12/24/21 08:58 Cardiology follow up for elevated troponin He is feeling better today. States he was able to sleep last night for the first time since entering the hospital. Reports improvement in breathing. Denies any chest pain. Review of Systems Constitutional: Constitutional: Reports no additional constitutional complaints Eyes: Eyes: Reports no additional eye complaints ENT: Reports system reviewed and no additional complaints, except as documented Cardiovascular: Cardiovascular: Reports no additional cardiovascular complaints and Reports dyspnea on exertion Respiratory: Respiratory: Reports cough and Reports dyspnea on exertion Gastrointestinal: Gastrointestinal: Reports no additional gastrointestinal complaints Musculoskeletal: Musculoskeletal: Reports no additional musculoskeletal complaints Integumentary/Breasts: Skin/Breast: Reports system reviewed and no additional complaints, except as docu Neurologic: Reports system reviewed and no additional complaints, except as documented Endocrine: Endocrine: Reports no additional endocrine complaints Hematologic/Lymphatic: Hematologic/Lymphatic: Reports no additional hematologic/lymphatic complaints Allergic/Immunologic: Allergic/Immunologic: Reports no additional allergic/immunologic complaints Exam Const: General: comfortable Other: Well-developed well-nourished white male wearing oxygen supplement nasal cannula. Not in any distress no chest pain HENMT: Mouth: Yes moist mucous membranes Eyes: Sclera: sclerae normal Pupils: Equal, round and reactive pupils present Neck: Neck: supple Other: Normal carotid pulses, no bruit. Difficult to assess JVD Resp: Effort & Inspection: normal respiratory effort Auscultation: other (bibasilar velcro crackles ) Cardio: Rate: regular rate Rhythm: regular rhythm Other: No murmur no gallop no rub GI: Auscultation: normal bowel sounds Skin: General skin exam: normal color Neuro: Cranial nerves: Yes Equal, round and reactive pupils present Other: Alert and oriented x3 Extrem: Other: No edema at all, normal distal pulses Objective Data Vital Signs Vital Signs: Vital Signs - 24 hr 12/23/21 09:10 12/23/21 10:00 12/23/21 10:59 Temperature Pulse Rate 60 64 Respiratory Rate Blood Pressure Pulse Oximetry 94 Oxygen Delivery High Flow Nasal Cannula Oxygen Flow Rate 5 12/23/21 12:00 12/23/21 13:55 12/23/21 14:09 Temperature 36.5 C Pulse Rate 57 L 73 60 Respiratory Rate 16 16 16 Blood Pressure 100/57 L Pulse Oximetry 96 Oxygen Delivery Oxygen Flow Rate 12/23/21 12:00 12/23/21 12:00 12/23/21 14:00 Temperature Pulse Rate 57 L 64 Respiratory Rate Blood Pressure Pulse Oximetry 96 Oxygen Delivery High Flow Nasal Cannula Oxygen Flow Rate 5 12/23/21 16:00 12/23/21 16:00 12/23/21 16:00 Temperature 36.5 C Pulse Rate 57 L 57 L Respiratory Rate 24 H Blood Pressure 118/67 Pulse Oximetry 96 94 Oxygen Delivery High Flow Nasal Cannula Oxygen Flow Rate 5 12/23/21 18:00 12/23/21 20:00 12/23/21 21:24 T
--- NOTE | 2021-12-24 09:52 | PM.IMPN ---
Progress Note: A&P Assessment and Plan (1) Acute respiratory failure: Code(s): J96.00 - Acute respiratory failure, unspecified whether with hypoxia or hypercapnia Status: Acute Assessment and Plan: Patient has developed worsening respiratory condition. Consider related to mismatch from the nebs, aspiration, infectious, CHF exac, COPD exac, ILD flare or combination. CXR showing diffuse bilateral airspace disease. CTA showed emphysema, severe ILD and GG opacities in left lung edema and/or PNA. He is on Levaquin for possible bacterial PNA. Will check influenza and COVID swabs. Speech therapy evaluation. Echo already ordered. Check BNP. Add Solu-Medrol. Pulmonary following and appreciate their input. Check ABG (2) Non-ST elevation myocardial infarction (NSTEMI): Code(s): I21.4 - Non-ST elevation (NSTEMI) myocardial infarction Status: Acute Assessment and Plan: Patient denies chest pain. His symptoms mostly consist of respiratory concerns. Troponins are elevated but flat. EKG does show diffuse T-wave inversion concerning for ischemia. He was on a heparin drip but this has now been stopped. He remains on aspirin, Lipitor and metoprolol. Echo pending. Cardiology has been consulted and appreciate their input. Lexiscan stress test placed on hold (3) Chronic respiratory failure with hypoxia, on home oxygen therapy: Code(s): J96.11 - Chronic respiratory failure with hypoxia; Z99.81 - Dependence on supplemental oxygen Status: Acute Assessment and Plan: CTA of the chest shows diffuse lung disease likely a combination of emphysema, severe ILD (UIP) and ground-glass opacities in left lung suggestive edema or pneumonia. He also has reactive mediastinal adenopathy. Patient has had a chronic cough that is worse since September when he had COVID. 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 His symptoms have worsened over the past 3-4 days to suggest change in his clinical condition possibly from bacterial pneumonia. There was a question of possible pulmonary edema. Has split S2 (gallop?) and elevated BNP but no pedal edema. BCx and sputum Cx pending. Treatment as above. (4) Obstructive sleep apnea: Code(s): G47.33 - Obstructive sleep apnea (adult) (pediatric) Status: Acute Assessment and Plan: Patient is compliant with CPAP at home. Continue NIV here while hospitalized per Pulmonary recommendations. (5) Interstitial lung disease: Code(s): J84.9 - Interstitial pulmonary disease, unspecified Status: Acute Assessment and Plan: As above. (6) Type 2 diabetes mellitus: Code(s): E11.9 - Type 2 diabetes mellitus without complications Status: Acute Assessment and Plan: A1c 6.2. The patient's blood glucose was reviewed on 12/24 Glucose remains well controlled. Continue AccuCheks covering with sliding scale. Hypoglycemia protocol available as needed. Continue to monitor (7) Hypothyroidism: Code(s): E03.9 - Hypothyroidism, unspecified Status: Acute Assessment and Plan: TSH is normal. Continue levothyroxine. Plan DVT prophylaxis: Lovenox prophylactic dose Code status: Full Diet: NPO until seen by Speech Subjective Date/time seen: 12/24/21 09:52 Interval history: 61yo male with chronic respiratory failure, ILD, DM and LAKSHMI transferred from outside hospital for possible NSTEMI. Patient has interstitial lung disease since 2017 and is on chronic oxygen 3 L at rest and 4 L with activity. Patient noted to be more hypoxic with activity and now up to 15L. He denies calf pain. He slept without the mask last night. No odynophagia or dysphagia. His cough has worsened. He did have hemoptysis last night. No chest pain. Stress test cancelled for today. No odynophagia or dysphagia Exam Narrative: AF 97.5 116/74 62 20 95% 15L HFNC Gen - NARD sitting up in bed Chest - distant, clear BS with scattered end
[2021-12-24] MEDS: BENZONATATE 100 MG CAPSULE 200 MG PO (10:06)
[2021-12-24] MEDS: ARIPiprazole 10 MG TABLET 30 MG PO (10:06)
[2021-12-24] MEDS: PANTOPRAZOLE 40 MG TABLET PO (10:07)
[2021-12-24] MEDS: METOPROLOL TARTRATE 12.5 MG TABLET PO ×2 (10:07→21:05)
[2021-12-24] MEDS: ASPIRIN 81 MG ENTERIC TABLET PO (10:07)
[2021-12-24] MEDS: buPROPion HCL SR (12HR) 100 MG TABCR 200 MG PO ×2 (10:07→16:55)
[2021-12-24] MEDS: ATORVASTATIN 20 MG TABLET PO (10:07)
[2021-12-24] MEDS: guaiFENesin 12 HR 600 MG TABCR PO ×2 (10:07→21:06)
[2021-12-24] MEDS: ENOXAPARIN 40 MG/0.4 ML SYRINGE SUB-Q (10:07)
[2021-12-24] MEDS: polyethylene glycoL 3350 17 GM POWD.PACK PO (10:08)
[2021-12-24] MEDS: ESCITALOPRAM OXALATE 10 MG TABLET PO (10:08)
[2021-12-24 10:55] LABS: Influenza Control Positive
[2021-12-24 11:02] LABS: NT Pro B Type Natriuretic Pept 1420 pg/mL (5-100)
[2021-12-24 11:13] LABS: SARS-CoV-2 RNA PCR Negative
[2021-12-24 11:30] LABS: Alveolar/Arterial O2 Gradient 621.3 mmHg; Base Excess ABG -0.3 mEq/l (+/-2.0); Fractional Inspired Oxygen 100 %; HCO3 ABG 23.8 mEq/l (22.0-26.0); Oxygen Content ABG 18.5 %vol (16.0-22.0); Oxygen Saturation ABG 89.2 % (95.0-100.0); PCO2 ABG 37.2 mmHg (35.0-45.0); PO2 ABG 54.5 mmHg (80.0-100.0); PO2 FiO2 Ratio Arterial Blood 0.55 %; Total Hemoglobin 15.2 g/dL (12.0-18.0); pH ABG 7.423 (7.350-7.450)
[2021-12-24 11:33] LABS: Device HIGH FLOW NASAL CANN; Modified Allen's Test Pass; Oxyhemoglobin 86.9 % THb (90.0-100.0); Site Drawn LEFT RADIAL
--- NOTE | 2021-12-24 12:11 | PM.PNPUL ---
Progress Note: A&P Assessment and Plan (1) Interstitial lung disease: Code(s): J84.9 - Interstitial pulmonary disease, unspecified Status: Acute Assessment and Plan: 12/23/2021 He has had this diagnosis since [id number], has not been on anti-fibrotic medications, He took steroids twice over the few weeks before this admission. He is followed by Dr Burkett in [facility]; will obtain records. He does not have an associated collagen vascular disease; he has worsened since COVID in September 2021. COVID can be associated with UIP type fibrosis.? he has a combination of processes going on at this time; underlying ILD for the last 6 years, subacute COVID in September 2021, possible active infection with ground glass opacities in the left base. He is on Levaquin for coverage of normal community acquired pathogens, may require additional treatment. He may need IV steroids, however with active infection, I wanted to delay this if possible. He is on PPI for management of GERD which is frequent in patients with ILD. He may benefit from vibratory valve to help expectorate secretions. I ordered an SEBASTIÁN panel to screen for collagen vascular diseases; he has regular arthritis, no evidence of RA and no history of auto-immune illness.? There is no family history of autoimmune illness.? A paternal uncle had a lung related when he was close to 60, not sure if this could represent a family hx of ILD. 12/23 His O2 needs are much higher, was on 6 L/min earlier in the day 12/23, increased to 10 L/min to maintain saturation around 90%. 12/24 The patient states that he has a little bit better. He did sleep last night. His cough is better. He continues with phlegm that is yellow with dark red color. he is on 15 L nasal cannula with saturations 92%. His white blood cell count is 11.0. His creatinine is 1.0. He is afebrile. Is COVID RT PCR study is negative today. His influenza swab is negative. Chest x-ray demonstrates diffuse interstitial and alveolar infiltrates with small lung volumes bilaterally. Given his high oxygen requirements will treat patient as if he is in the intensive care unit with the community-acquired pneumonia in add ceftriaxone to Levaquin. Will follow the patient clinically on antibiotics prior to considering a steroid boost for possible interstitial lung disease exacerbation. (2) Obstructive sleep apnea: Code(s): G47.33 - Obstructive sleep apnea (adult) (pediatric) Status: Acute Assessment and Plan: 12/23 Uses APAP at home with O2; sometimes he wakes with the mask on the floor; will offer APAP while he is here. He has not had a sleep study in years. He feels better using PAP compared to nightst hat he does not use it. 12/24 Patient could not wear the hospital auto Pap last night because of his high oxygen requirements. I have told the family to bring in his home auto PAP machine and will obtain a download from his [employer] company which is [employer]. At this time the patient tells me that he slept fine last night without any auto Pap. Discussed with Dr. Jones. Will follow with you Subjective Date/time seen: 12/24/21 12:11 Interval history: Consult date: 12/23/21 Requesting physician: Bj Jones MD Chief complaint: ILD, post COVID Narrative: NEW:?Dean Duffy is a 61 year old man admitted with increased shortness of breath and incessant coughing to the point of almost passing out.? During the 3 weeks prior to this admission, he had increased symptoms, and was prescribed 2 rounds of short course steroids which sounded like a medrol dose pack and once he had azithromycin. He was initially treated at [facility] in [place], had low level troponins, no other evidence of an MN. Dr Starr saw him in consultation, did not think he had an MN or other significant cardiac disease. He was diagnosed with ILD in [id number] along with DM II and LAKSHMI. He retired from working as
--- NOTE | 2021-12-24 12:16 | PCSTNOTE ---
Please refer to the Bedside Swallow Evaluation in the EMR. Please note, silent aspiration cannot be ruled out at bedside.
[2021-12-24 12:21] LABS: Glucose Point of Care 136 mg/dl (65-105)
[2021-12-24 16:10] LABS: Glucose Point of Care 151 mg/dl (65-105)
[2021-12-24 20:14] LABS: Glucose Point of Care 148 mg/dl (65-105)
[2021-12-25] VITALS (8 sets, daily range): BP systolic 96; BP diastolic 37; PULSE 87–120; RESP 18–35; O2SAT 88–93
[2021-12-25 00:20] LABS: Alveolar/Arterial O2 Gradient 605.1 mmHg; Base Excess ABG -0.4 mEq/l (+/-2.0); Carboxyhemoglobin 0.4 % THb (0-2.0); Device NON-INVASIVE VENT; Fractional Inspired Oxygen 100 %; HCO3 ABG 22.9 mEq/l (22.0-26.0); Methemoglobin ABG 0.3 %THb (0-1.5); Modified Allen's Test Pass; Oxygen Content ABG 20.7 %vol (16.0-22.0); Oxygen Saturation ABG 95.4 % (95.0-100.0); PCO2 ABG 34.3 mmHg (35.0-45.0); PO2 ABG 73.6 mmHg (80.0-100.0); PO2 FiO2 Ratio Arterial Blood 0.74 %; Reduced Hemoglobin 5.3 %THb (0-5.0); Site Drawn RIGHT RADIAL; Total Hemoglobin 15.7 g/dL (12.0-18.0); pH ABG 7.443 (7.350-7.450)
[2021-12-25 00:21] LABS: Non-Invasive Expiratory Pressure 5 CMH2O; Non-Invasive Inspiratory Pressure 15 CMH2O; Non-Invasive Vent Rate 20 /MIN
--- NOTE | 2021-12-25 00:57 | PC.NURSE ---
during my shift so far, patient has had an increased o2 need. he went from 15L hfnc to airvo at 60L/95% to bipap with 100% fio2. patient is still struggling to breathe with respirations in 30's to 40's. johnson catheter was placed to conserve energy, over 2L of urine was the return. johnson catheter was clamped for 30 min and then lasix ordered to give.
[2021-12-25] MEDS: MORPHINE SULFATE (*CRX) 2 MG/ML INJ 1 MG IV PUSH (01:15)
[2021-12-25] MEDS: FUROSEMIDE INJ 40 MG/4 ML VIAL 20 MG IV PUSH (01:16)
--- NOTE | 2021-12-25 02:01 | PC.NURSE ---
PATIENTS TV WAS INCREASED SHOWING HIGH INSPIRATORY PRESSURES. RESPIRATORY WANTED DR BEGUM CALLED TO DECREASE THE PRESSURES ON THE BIPAP. HE WANTED NO CHANGE TO SETTING AND ORDERED STEROIDS FOR PATIENT, HE WANTED HIM TO BE EVALUATED FOR ICU, AGAIN. UNABLE TO GET A HOLD OF DR TADEO AT THIS TIME, CALLED DR BEGUM BACK FOR ORDERS FOR ICU TRANSFER. HE WANTED THE HOSPITALIST TO TAKE CARE OF IT. SO CHARGE NURSE, DR BEGUM, DR TADEO, KELLEY SOLER MA. ALL AWARE OF THE SITUATION. DR TADEO WAS FINALLY REACHED AND INSTRUCTED PER DR BEGUM WHAT SHOULD BE DONE FOR THE PATIENT. DR TADEO WILL SPEAK WITH DR MAY.
[2021-12-25] MEDS: methylPREDNISolone SOD SUCC 125 MG VIAL 60 MG IV PUSH (02:24)
--- NOTE | 2021-12-25 02:44 | PC.NURSE ---
SPOKE WITH PATIENT'S SPOUSE, UPDATED HER ON WHAT IS GOING ON WITH HER . INFORMED HER OF THE VISITING HOURS FOR ICU.
--- NOTE | 2021-12-25 02:59 | WPDPROCEDUR ---
Procedures Intubation Intubation Date: 12/25/21 Intubation Time: 02:30 Consent: yes Sedative: etomidate Mg given: 15 Paralytic: rocuronium Mg given: 90 Laryngoscope: fiber optic video scope Assist device used: fiber optic device ET tube size: 8 Tube secured depth (cm): 26 Tube secured location: lips Tube placement confirmation: visualized tube passing through cords, equal breath sounds bilaterally, no breath sounds over epigastrium and confirmation by capnometry Patient tolerated procedure: no complications Intubation complications: none
[2021-12-25] MEDS: FENTANYL 2,500MCG/NS250ML(*CRX 2,500 MCG/250 ML BAG 15 MCG IV CONT (03:03)
[2021-12-25] MEDS: MIDAZOLAM 100MG/NS 100ML(*CRX) 100 MG/100 ML BAG IV CONT (03:04)
[2021-12-25] MEDS: ALBUTEROL SULFATE NEB 2.5 MG/3 ML INH INHALATION (03:05)
[2021-12-25] MEDS: IPRATROPIUM BR 0.02% INH SOLN 0.5 MG/2.5 ML VIAL INHALATION (03:05)
[2021-12-25 03:07] LABS: Glucose Point of Care 179 mg/dl (65-105)
[2021-12-25] MEDS: ETOMIDATE 20 MG/10 ML AMPUL 15 MG IV PUSH (03:19)
[2021-12-25] MEDS: FUROSEMIDE INJ 40 MG/4 ML VIAL IV PUSH (03:21)
[2021-12-25] MEDS: ROCURONIUM BROMIDE 50 MG/5 ML VIAL 75 MG IV PUSH (03:25)
[2021-12-25] MEDS: MIDAZOLAM HCL (*CRX) 2 MG/2 ML VIAL IV PUSH (03:29)
[2021-12-25 03:43] LABS: Alveolar/Arterial O2 Gradient 599.6 mmHg; Base Excess ABG -6.5 mEq/l (+/-2.0); Carboxyhemoglobin 0.4 % THb (0-2.0); Fractional Inspired Oxygen 100 %; Methemoglobin ABG 0.5 %THb (0-1.5); Oxygen Content ABG 20.5 %vol (16.0-22.0); PCO2 ABG 49.1 mmHg (35.0-45.0); PO2 ABG 64.3 mmHg (80.0-100.0); PO2 FiO2 Ratio Arterial Blood 0.64 %; Reduced Hemoglobin 11.7 %THb (0-5.0); Total Hemoglobin 16.7 g/dL (12.0-18.0)
[2021-12-25 03:50] LABS: Device VENTILATOR; Modified Allen's Test Pass; Oxyhemoglobin 87.4 % THb (90.0-100.0); Site Drawn RIGHT RADIAL
[2021-12-25 03:51] LABS: Arterial Blood Gas PEEP 8 cmH2O; Arterial Blood Gas Tidal Volume 400 ml; Arterial Blood Gas Vent Mode CMV; Arterial Blood Gas Ventilator rate 18 /MIN
[2021-12-25 04:20] LABS: Basophils Absolute Auto 0.1 K/mm3 (0.0-0.1); Basophils Percent Auto 0.3 % (0.2-1.2); Eosinophils Percent Auto 0.1 % (0-4.4); Hematocrit 50.8 % (42.0-52.0); Hemoglobin 15.9 g/dL (14.0-18.0); Immature Granulocyte Absolute 0.18 K/mm3 (0.00-0.031); Immature Granulocyte Percent A 0.9 % (0-0.5); Lymphocytes Percent Auto 10.8 % (18.3-44.2); Mean Corpuscular HGB Conc 31.3 g/dl (32-36); Mean Corpuscular Hemoglobin 29.9 pg (26-34); Mean Corpuscular Volume 95.5 fl (80-100); Monocytes Absolute Auto 1.4 K/mm3 (0.1-0.6); Monocytes Percent Auto 7.3 % (2.6-8.5); Neutrophils Absolute Auto 15.7 K/mm3 (1.3-6.7); Neutrophils Percent Auto 80.6 % (45.5-73.1); Platelet Count Result 253 k/mm3 (150-375); Red Blood Count 5.32 M/mm3 (4.6-6.20); White Blood Count 19.4 K/mm3 (4.5-10.0)
[2021-12-25] MEDS: ROCURONIUM BROMIDE 50 MG/5 ML VIAL IV PUSH (04:27)
[2021-12-25 04:30] LABS: INR 1.4; Prothrombin Time 16.9 Seconds (11.1-14.7)
[2021-12-25 04:31] LABS: Anion Gap 16 mmol/L (8-16); Blood Urea Nitrogen 17 mg/dL (9-20); Calcium 8.5 mg/dL (8.4-10.2); Carbon Dioxide 24 mmol/L (22-30); Chloride 101 mmol/L (98-107); Estimated CRCL calculation 69 ml/min; Estimated Glomerular Filt Rate > 60; Glucose 211 mg/dL (65-110); Partial Thromboplastin Time 29.3 SECONDS (22.3-36.8); Potassium 4.2 mmol/L (3.4-5.0); Sodium 141 mmol/L (137-145)
[2021-12-25 04:34] LABS: D Dimer 2.27 ug/mL (<0.48)
[2021-12-25 04:36] LABS: Lactic Acid Reflex 4.7 mmol/L (0.7-2.0)
[2021-12-25 04:46] LABS: Alanine Aminotransferase 50 U/L (6-50); Albumin Level 3.7 g/dL (3.5-5.1); Alkaline Phosphatase 72 U/L (38-126); Anion Gap 16 mmol/L (8-16); Aspartate Amino Transferase 80 U/L (17-59); Bilirubin,Total 2.1 mg/dL (0.2-1.3); Blood Urea Nitrogen 17 mg/dL (9-20); Carbon Dioxide 29 mmol/L (22-30); Chloride 100 mmol/L (98-107); Estimated CRCL calculation 63 ml/min; Estimated Glomerular Filt Rate > 60; Glucose 210 mg/dL (65-110); Magnesium 2.5 mg/dL (1.6-2.3); Sodium 145 mmol/L (137-145)
[2021-12-25] MEDS: EPINEPHrine INJ 1 MG/10 ML SYRINGE IV PUSH (04:47)
[2021-12-25] MEDS: NOREPINEPHRINE 8 MG/D5W 250 ML 8 MG/250 ML BAG 9.38 MG IV CONT (04:58)
[2021-12-25 05:09] LABS: Troponin I 0.081 ng/mL (0.000-0.034)
--- NOTE | 2021-12-25 05:18 | PDCODEBLUE ---
Code Blue Note Code Blue Note Time Arrived at Code Blue: 0440 Initial Rhythm on Arrival: Bradycardia/PEA x 4 Airway Management: Already Chest Compressions: In process on arrival to bedside Result of Code Blue: Pt Cardiac Rhythm Post Code: Sinus tachy x 4 Code Blue Summary: Patient was coded x4 received multiple rounds of epinephrine, bicarb, calcium chloride. Not able to keep oxygen saturation and was bagged for extended time arrived while resuscitative efforts were ongoing and requested to withdraw support of care Immediate comfort care measures were initiated, at bedside.
--- NOTE | 2021-12-25 05:24 | PM.EVENT ---
Event Note Event Note Event Note: I was called to assess patient due to increased demand of oxygen on 100% of FiO2 on BiPAP is still with increased work of breathing decision was made to transfer the patient to ICU on place on ventilator support. Patient was agreeable to it we proceeded to transfer patient to intensive care unit. Objective: Patient on BiPAP significant respiratory distress paradoxical breathing noted on 100% of FiO2 saturating 93% subjective: I feel fine general: Patient is laying in bed on BiPAP moderate respiratory distress noted. HEENT: Atraumatic normocephalic BiPAP mask on PERRLA, EOM intact, supple no JVD respiratory: Coarse breath sounds throughout velcro crackles at the bases cardiovascular: S1-S2 of good tone and intensity, no murmurs rubs or gallops abdomen: Distended, no tenderness, no hepatosplenomegaly. skin: Moist, warm, intact. Extremities: No cyanosis, no edema. central nervous system: Awake alert oriented x3 cranial nerves II-XII grossly intact no sensorimotor deficit assessment and plan 61-year-old male with history of interstitial lung disease, chronic hypoxic respiratory failure, on continues supplemental oxygen by nasal cannula at home is status post COVID 19 pneumonia. 1. Acute hypoxic respiratory failure on chronic hypoxic respiratory failure: Patient has failed NIPPV, placed on ventilator. critical care time + 120 minutes
--- NOTE | 2021-12-25 05:44 | PC.NURSE ---
0220 Patient arrived to ICU room 8 from IMU on a BiPap. Patient called his to give her an update on his condition. At 0240, Patient was intubated by Dr. Briceño after being given 15mg of Etomidate and 90mg of Rocuronium. Patient needed to be bagged for about 15 minutes afterwards. ETT and OG placement confirmed per portable CXR. 0341 Patient had missed beats on the monitor and then went [place] to 28 bpm and BP dropped in the 40s/20s. A code blue was called. CPR was started immediately. Patient's was called and informed of the situation and stated that she as on her way. After numerous rounds of CPR, the patient's arrived and requested that we stop CPR and withdraw care. Time of was called at 0528 by newspaper writer and charge nurse, Kraig.
--- NOTE | 2021-12-25 06:26 | PC.NURSE ---
SEE CODES SHEETS
--- NOTE | 2021-12-25 06:32 | PC.NURSE ---
pt went into PEA arrest see code sheets
[2021-12-25 07:18] LABS: Reflex Lactic Acid Yes or No Add Lactic
--- NOTE | 2021-12-26 07:11 | PM.DDS ---
Discharge Summary Date and Time Date of : 12/25/21 Time of : 05:28 Probable Cause of Probable Cause of : Acute on chronic respiratory failure Summary Hospital Course: Patient has had a chronic cough that worsen since September when he had COVID.? His symptoms have worsened over the past 3-4 days concerning for bacterial pneumonia. CTA of the chest shows diffuse lung disease likely a combination of emphysema, severe ILD (UIP) and ground-glass opacities in left lung suggestive edema or pneumonia.? He also has reactive mediastinal adenopathy.?BCx and sputum Cx collected. Abx started. Patient developed worsening respiratory condition. Pulmonary consulted. Steroids added. His condition worsened requiring intubation but he developed bradycardia then PEA. CPR started. Patient was coded x4 received multiple rounds of epinephrine, bicarb, calcium chloride. arrived while resuscitation efforts were ongoing and requested to withdraw support of care. Patient passed. Additional Data Confirmation of as documented by pronouncing clinician: Pupillary Reflex, Palpable Pulses, Response to Stimuli, Heart Tones and Breath Sounds Name of Provider Notified: dr ly Time Provider Notified: 05:28 Provider Requests Autopsy: No Family Requests Autopsy: No Sld Teacher Notified: Yes Date [facility] Notified of : 12/25/21 Time [facility] Notified of : 05:50
[2021-12-28 09:25] LABS: ANA Cascade Screen Negative (Negative)
== END 2021-12-25 05:28 | disposition expired | DRG 208 ==
LOC: ANHIMU 12-25 01:01 → ANHICU 12-25 02:48
PROVIDERS: Internal Medicine; Internal Medicine Critical Care Medicine; Internal Medicine Pulmonary Disease; Physician Assistant; Admitting Provider Student in an Organized Health Care Education/Training Program; PCP Family Medicine; Visit Provider Student in an Organized Health Care Education/Training Program
DX: J18.9 Pneumonia, unspecified organism (principal); J96.21 Acute and chronic respiratory failure with hypoxia; J96.22 Acute and chronic respiratory failure with hypercapnia; J84.9 Interstitial pulmonary disease, unspecified; J15.9 Unspecified bacterial pneumonia; U09.9 Post COVID-19 condition, unspecified; Z20.822 Contact with and (suspected) exposure to COVID-19; G47.33 Obstructive sleep apnea (adult) (pediatric); E11.9 Type 2 diabetes mellitus without complications; E03.9 Hypothyroidism, unspecified; R00.1 Bradycardia, unspecified; R59.0 Localized enlarged lymph nodes; R77.8 Other specified abnormalities of plasma proteins; K21.9 Gastro-esophageal reflux disease without esophagitis; M19.90 Unspecified osteoarthritis, unspecified site; Z85.828 Personal history of other malignant neoplasm of skin; Z99.81 Dependence on supplemental oxygen; Z87.891 Personal history of nicotine dependence; Z79.84 Long term (current) use of oral hypoglycemic drugs
CPT/HCPCS: 31500; 36415; 36600; 71045; 71275; 80048; 80053; 82375; 82805; 82948; 83036; 83050; 83605; 83735; 83880; 84443; 84484; 85025; 85380; 85610; 85730; 86038; 87040; 87070; 87205; 87804; 92610; 93005; 93306; 94002; 94003; 94640; 96365; 96366; A9270; C1751; C9803; G0378; G0379; J0171; J0696; J1644; J1650; J1940; J1956; J2250; J2270; J2930; J3010; J7030; Q9967; U0003; U0005